=== PATIENT | female | born 1985 | race Caucasian/White ===

== ENCOUNTER → 2019-02-10 | Outpatient (CLI) | payer OTHER ==
[~2019-02-10] MED LIST: BACL20 PO; Baclofen20 MG PO; Colace100 MG PO; DIAZ2 PO; Inderal80 MG PO; Norco 5-325 Ta1 EACH PO; TOPI50 PO; VENL37.5ER PO; VENL75ER PO; Valium2 MG PO
== END | disposition home or self-care (01) ==
LOC: LAB 17:18 → LAB SHORT 17:18
DX: L30.9 Dermatitis, unspecified (principal)
CPT/HCPCS: 87220

== ENCOUNTER 2019-04-05 15:05 | Emergency (ER) | payer OTHER ==
[~2019-04-05] VITALS: Ht 172.7 cm; Wt 106.6 kg
[~2019-04-05 15:05] MED LIST changes: -Baclofen20 MG PO; -Colace100 MG PO; -Inderal80 MG PO; -VENL75ER PO; -Valium2 MG PO
[2019-04-05] MEDS ORDERED: Inderal80 MG PO (15:42)
[2019-04-05] MEDS ORDERED: Baclofen20 MG PO (15:42)
[2019-04-05] MEDS ORDERED: Valium2 MG PO (15:42)
[2019-04-05] MEDS ORDERED: Colace100 MG PO (15:42)
[2019-04-05] MEDS ORDERED: VENL75ER PO (15:42)
[2019-04-05] MEDS ORDERED: DIAZ2 PO (15:42)
== END 2019-04-05 15:46 | disposition home or self-care (01) ==
LOC: ER 15:05
DX: Z76.0 Encounter for issue of repeat prescription (principal); Z88.8 Allergy status to other drugs, medicaments and biological substances; Z79.899 Other long term (current) drug therapy
CPT/HCPCS: 99281

== ENCOUNTER → 2020-09-11 | Outpatient (CLI) | payer OTHER ==
[~2020-09-11] MED LIST changes: +Baclofen20 MG PO; +Colace100 MG PO; +Inderal80 MG PO; +VENL75ER PO; +Valium2 MG PO
[2020-09-11 15:07] LABS: BASOPHILS ABSOLUTE AUTO 0.08 K/mm3 (0.00-0.23); BASOPHILS PERCENT AUTO 1 % (0-2); EOSINOPHILS ABSOLUTE AUTO 0.09 K/mm3 (0.00-0.68); EOSINOPHILS PERCENT AUTO 1 % (0-6); Hemoglobin 14.5 g/dL (11.5-16.0); IMMATURE GRAN ABSOLUTE AUTO 0.03 K/mm3 (0.00-0.10); IMMATURE GRAN PERCENT AUTO 0 % (0-1); LYMPHOCYTES ABSOLUTE AUTO 2.26 K/mm3 (0.84-5.20); LYMPHOCYTES PERCENT AUTO 20 % (21-46); MONOCYTES ABSOLUTE AUTO 0.64 K/mm3 (0.16-1.47); MONOCYTES PERCENT AUTO 6 % (4-13); Mean Corpuscular HGB 29.8 pg (26.0-34.0); Mean Corpuscular Volume 91 fL (80-100); Mean Platelet Volume 12.7 fL (9.1-12.4); NEUTROPHILS PERCENT AUTO 72 % (41-73); Platelet Count 291 K/mm3 (150-400); RDW Coefficient Variation 13.2 % (11.7-14.2); RDW Standard Deviation 43.2 fL (35.1-46.3); Red Blood Cell Count 4.86 M/mm3 (3.80-5.20)
[2020-09-11 15:24] LABS: Alanine Aminotransfer (ALT/SGP 30 U/L (12-78); Albumin, Blood 3.8 g/dL (3.4-5.0); Albumin/Globulin Ratio 0.8 (0.8-1.8); Alk Phos 95 U/L (40-126); Anion Gap 10 mmol/L (6-16); Aspartate Aminotrans (AST/SGOT 18 U/L (12-37); Bilirubin, Total 0.4 mg/dL (0.1-1.0); Blood Urea Nitrogen 10 mg/dL (8-24); Bun/Creatinine Ratio 16.9 (12.0-20.0); CO2, Blood 27 mmol/L (21-32); Calcium, Blood 9.3 mg/dL (8.5-10.1); Chloride, Blood 103 mmol/L (98-108); Creatinine, Blood 0.59 mg/dL (0.40-1.00); Globulin, Blood 4.7 g/dL (2.2-4.0); Glomerular Filtration Rate >60 (60-); Glucose, Blood 97 mg/dL (70-99); Potassium, Blood 3.9 mmol/L (3.5-5.5); Sodium, Blood 140 mmol/L (136-145); Total Protein, Blood 8.5 g/dL (6.4-8.2)
== END | disposition home or self-care (01) ==
LOC: LAB EV 15:02 → LAB SHORT 15:02
PROVIDERS: Physician Assistant Medical
DX: R10.11 Right upper quadrant pain (principal)
CPT/HCPCS: 80053; 85025

== ENCOUNTER → 2020-09-12 | Outpatient (CLI) | payer OTHER ==
[2020-09-12 11:27] LABS: Source, Urine Voided
[2020-09-12 13:14] LABS: Appearance, Urine Cloudy (Clear); Color, Urine Yellow (P-Yellow); Leukocyte Esterase, Urine 1+ (Neg); Nitrite, Urine Pos (Neg); Specific Gravity, Urine 1.015 (1.003-1.022)
[2020-09-12 13:15] LABS: Bacteria Many /hpf; Bilirubin, Urine Neg (Neg); Blood, Urine Neg (Neg); Glucose Qualitative, Urine Neg (Normal); Ketones, Urine 1+ (Neg); Protein, Urine Neg (Neg); Red Blood Cells, Urine 0-2 /hpf (0-2); Squamous Epithelial Cells Few /hpf (Few); Triple Phosphate Crystals Many /hpf; Urobilinogen, Urine NORM (Normal)
== END | disposition home or self-care (01) ==
LOC: LAB EV 11:07 → LAB SHORT 11:07
PROVIDERS: Physician Assistant Medical
DX: R10.9 Unspecified abdominal pain (principal)
CPT/HCPCS: 81001

== ENCOUNTER 2022-06-14 11:51 | Emergency (ER) | payer OTHER ==
[~2022-06-14] VITALS: Ht 172.7 cm; Wt 90.7 kg
[2022-06-14] MEDS ORDERED: Baclofen10 MG PO ×2 (12:19→13:00)
[2022-06-14] MEDS ORDERED: DIAZ2 PO ×4 (12:19→13:00)
== END 2022-06-14 12:21 | disposition home or self-care (01) ==
LOC: ER 11:51
DX: Z76.0 Encounter for issue of repeat prescription (principal); Z88.8 Allergy status to other drugs, medicaments and biological substances; Z79.899 Other long term (current) drug therapy
CPT/HCPCS: 99281

== ENCOUNTER → 2022-07-09 | Outpatient (CLI) | payer OTHER ==
[~2022-07-09] MED LIST changes: +Baclofen10 MG PO
== END ==
LOC: LAB SHORT 13:00 → LAB 13:00
DX: N39.0 Urinary tract infection, site not specified (principal)
CPT/HCPCS: 87086

== ENCOUNTER → 2022-11-27 | Outpatient (CLI) | payer OTHER | END | disposition home or self-care (01) | LOC: LAB SHORT 11:15 → LAB 11:15 | DX: N39.0 Urinary tract infection, site not specified (principal) | CPT/HCPCS: 87086 ==

== ENCOUNTER → 2023-04-01 | Outpatient (CLI) | payer OTHER ==
[~2023-04-01] MED LIST changes: +ACET325 PO; +DOCU100 PO; +FLONASE ALLERG9.9 M2; +GLUCOSAMINE-CH1 EAC7 PO; +LATA.005SO BOTHEYES; +MIRALAX17 GM PO; +Naprelan375 MG PO; +VOLTAREN ARTHRI20 GM TOP; +ZYRTEC10 M2 PO
[2023-04-01 14:57] LABS: Source, Urine Clean Catch
[2023-04-01 17:13] LABS: Appearance, Urine Clear (Clear); Bilirubin, Urine Neg (Neg); Blood, Urine Neg (Neg); Glucose Qualitative, Urine Neg (Neg); Ketones, Urine Neg (Neg); Leukocyte Esterase, Urine Neg (Neg); Nitrite, Urine Neg (Neg); Protein, Urine Neg (Neg); Urobilinogen, Urine NORM (Normal); pH, Urine 6.5 (5.0-8.0)
[2023-04-01 17:48] LABS: Color, Urine Pale Yellow (P-Yellow)
== END ==
LOC: LAB 14:53 → LAB SHORT 14:53
PROVIDERS: Family Medicine
DX: R33.9 Retention of urine, unspecified (principal)
CPT/HCPCS: 81003; 87086

== ENCOUNTER → 2024-10-18 | Outpatient (CLI) | payer OTHER ==
[2024-10-18 14:07] LABS: Source, Urine Straight Cath
[2024-10-18 17:59] LABS: Bacteria Many /hpf; Mucus Mod (0-Heavy); Squamous Epithelial Cells Few /hpf (Few)
[2024-10-18 20:47] LABS: Bacterial Vaginosis PCR Negative (NEGATIVE); Candida Group, PCR NOT DETECTED (NOT DETECT); Candida glabrata-krusei, PCR NOT DETECTED (NOT DETECT)
== END | disposition home or self-care (01) ==
LOC: LAB SHORT 14:04 → LAB 14:04
PROVIDERS: Family Medicine
DX: N89.8 Other specified noninflammatory disorders of vagina (principal); R39.9 Unspecified symptoms and signs involving the genitourinary system
CPT/HCPCS: 81015; 81515; 87086

== ENCOUNTER 2025-05-14 20:14 | Emergency (ER) | payer OTHER ==
[~2025-05-14] VITALS: Ht 172.7 cm; Wt 90.7 kg
[2025-05-14 20:19] VITALS: BP 137/99
== END 2025-05-14 22:05 | disposition home or self-care (01) ==
LOC: ER 20:14
DX: S00.03XA Contusion of scalp, initial encounter (principal); G82.20 Paraplegia, unspecified; Z88.8 Allergy status to other drugs, medicaments and biological substances; Z79.899 Other long term (current) drug therapy; W17.89XA Other fall from one level to another, initial encounter
CPT/HCPCS: 99283; A9270